=== PATIENT | male | born 1985 | race Two or more races ===

== ENCOUNTER 2019-11-12 07:49 | Outpatient (CLI) | payer OTHER | END 2019-11-12 08:30 | disposition home or self-care (01) | LOC: RAD 07:49 → MAMO-SONO 09:15 | PROVIDERS: ATTEND Surgery | DX: R10.31 Right lower quadrant pain (principal); E66.01 Morbid (severe) obesity due to excess calories; R10.13 Epigastric pain; K21.9 Gastro-esophageal reflux disease without esophagitis; R00.0 Tachycardia, unspecified; I10 Essential (primary) hypertension ==

== ENCOUNTER 2019-12-10 07:48 | Outpatient (CLI) | payer OTHER | END 2019-12-10 12:22 | disposition home or self-care (01) | LOC: NUCLEAR 07:48 | PROVIDERS: ATTEND Surgery | DX: R07.89 Other chest pain (principal) | CPT/HCPCS: 78452; 93017; A9500 ==

== ENCOUNTER 2019-12-23 07:16 | Outpatient (CLI) | payer OTHER | END 2019-12-23 07:30 | disposition home or self-care (01) | LOC: NUCLEAR 07:16 | PROVIDERS: ATTEND Surgery | DX: R00.0 Tachycardia, unspecified (principal); E66.01 Morbid (severe) obesity due to excess calories ==

== ENCOUNTER 2020-01-01 07:18 | Day surgery (SDC) | payer OTHER | END 2020-01-01 12:42 | disposition home or self-care (01) | LOC: AMB-ENDOS 07:18 → ADM 08:00 → AMB-ENDOS 08:00 | PROVIDERS: ATTEND Surgery | DX: D13.1 Benign neoplasm of stomach (principal); K44.9 Diaphragmatic hernia without obstruction or gangrene ==